=== PATIENT | female | born 1975 | race Caucasian/White ===

== ENCOUNTER 2017-08-08 22:54 | Emergency (ER) | payer OTHER ==
[2017-08-08] MEDS ORDERED: Acetaminophen/oxyCODONE 325-10 MG Tab PO STA (23:48)
--- NOTE | 2017-08-08 23:48 | EDM.PDOC ---
ED HPI GENERAL MEDICAL PROBLEM - General Chief Complaint: Upper Extremity Injury/Pain Stated Complaint: PAIN LT WRIST Time Seen by Provider: 08/08/17 23:25 Source of Information: Reports: Patient - History of Present Illness INITIAL COMMENTS - FREE TEXT/NARRATIVE: fell against left hand now complains of pain no other injury Left Wrist Pain Score (Numeric/FACES): 8 - Related Data Allergies Allergy/AdvReac Type Severity Reaction Status Date / Time No Known Allergies Allergy Verified 08/08/17 23:01 Home Meds: Home Meds Albuterol [Ventolin HFA] 2 puff INH Q4H PRN 12/23/14 [History] Modafinil [Provigil] 100 mg PO 1200 PRN 12/24/14 [History] Zolpidem [Ambien] 5 mg PO BEDTIME 12/24/14 [History] Past Medical History Neurological History: Reports: Other (See Below) Other Neuro History: epilepsy and narcolepsy - Infectious Disease History Infectious Disease History: Reports: Chicken Pox Social & Family History - Family History Family Medical History: Noncontributory - Tobacco Use Smoking Status *Q: Former Smoker Used Tobacco, but Quit: Yes Month Tobacco Last Used: 13 years Second Hand Smoke Exposure: No - Caffeine Use Caffeine Use: Reports: Soda - Alcohol Use Days Per Week of Alcohol Use: 1 Number of Drinks Per Day: 1 Total Drinks Per Week: 1 - Recreational Drug Use Recreational Drug Use: No Review of Systems - Review of Systems Review Of Systems: See Below (no other injury) ED EXAM, GENERAL - Physical Exam Exam: See Below Free Text/Narrative:: alert non toxic appearance neck supple normal mentation left wrist: diffuse swelling and tenderness over distal forearm; no deformity normal finger function left hand Course - Vital Signs Last Recorded V/S: Last Vital Signs Temp 97.5 F 08/08/17 22:58 Pulse 97 08/08/17 22:58 Resp 16 08/08/17 22:58 BP 121/82 08/08/17 22:58 Pulse Ox 97 08/08/17 22:58 - Orders/Labs/Meds Orders: Active Orders 24 hr Category Date Time Status Wrist 2V Lt [CR] Stat Exams 08/08/17 23:02 Taken Departure - Departure Time of Disposition: 23:46 Disposition: Home, Self-Care 01 Condition: Fair Clinical Impression: Sprain of left wrist - Discharge Information Referrals: Norby,Ksenia A, THREAT ANALYST [Primary Care Provider] - Additional Instructions: percocet 10/325 1 po q 4 hours prn pain recheck later this week use a wrist splint for one to two weeks percocet is for short term use as it may be habit forming, sedating and constipating. do not use with tylenol
[2017-08-09 04:35] VITALS: BP 117/79
--- NOTE | 2017-08-09 16:30 | CR ---
EXAM DATE: 08/08/17 PATIENT'S AGE: 41 Patient: LUCRECIA CONWAY Facility: [place], [place] Site . Site : 1975 Study: XRay Extremity Left wrist [id number] 11:20:46 PM Ordering Physician: Dain Montes De Oca Final Report: Indication: Pain. Technique: Left wrist two views. Comparison: None. Findings: No acute fracture or dislocation. No additional osseous abnormality. No radio- opaque foreign body evident in the soft tissues. Impression: No acute osseous abnormality. Dictated by Porfirio Mejia MD @ 08/09/2017 12:06:14 AM Dictated by: Porfirio Mejia MD @ 08/09/2017 00:06:20 (Electronic Signature) Report Signed by Proxy. [facility]
== END 2017-08-09 00:14 | disposition home or self-care (01) ==
LOC: MW.ED 22:54
DX: S63.502A Unspecified sprain of left wrist, initial encounter (principal); Z87.891 Personal history of nicotine dependence; W19.XXXA Unspecified fall, initial encounter
CPT/HCPCS: 73100; 99283; A9270; 99282

== ENCOUNTER 2021-02-16 11:23 | Emergency (ER) | payer OTHER ==
[2021-02-16] MEDS ORDERED: Sodium Chloride 0.9% 2.5 ML Syringe FLUSH PRN (11:34)
[2021-02-16] MEDS ORDERED: Ketorolac 15 MG/ML SDV IVPUSH ONE (11:34)
[2021-02-16] MEDS ORDERED: Aspirin 81 MG Tab.Chew PO ONE (11:34)
[2021-02-16] MEDS ORDERED: Sodium Chloride 0.9% 10 ML Syringe FLUSH PRN (11:34)
--- NOTE | 2021-02-16 11:38 | EDM.PDOC ---
ED HPI GENERAL MEDICAL PROBLEM - General Chief Complaint: Chest Pain Stated Complaint: CHEST PAINS Time Seen by Provider: 02/16/21 11:28 - History of Present Illness INITIAL COMMENTS - FREE TEXT/NARRATIVE: History of present illness: [] This 45-year-old young lady reports chest pain that started yesterday. It lasted 5 minutes and comes back every 2 to 3 minutes. It is pressure in the right side of her chest and it is severe. It is not associated with shortness of breath nausea but is temporally associated with diaphoresis. The patient is a 15-year smoking history but has been free of cigarettes for 15 years. The patient has a grandmother may have had blood clots and certainly had some atherosclerotic disease. There is no heart attack stroke or thromboembolic disease in the immediate family. The patient has no previous history of thromboembolic disease, no recent immobilization or long trips, no surgery or cast. Review of systems: As per history of present illness and below otherwise all systems reviewed and negative. Past medical history: As per history of present illness and as reviewed below otherwise noncontributory. Surgical history: As per history of present illness and as reviewed below otherwise noncontributory. Social history: No reported history of drug or alcohol abuse. Family history: As per history of present illness and as reviewed below otherwise noncontributory. Physical exam: Constitutional - well developed, well-nourished and in no acute distress HEENT - normocephalic, no evidence of trauma - external nose and mouth normal - no mass in neck and no JVD - mucosae moist EYES - full EOM, PERRL, no icterus - no evidence of inflammation, injection, or drainage Respiratory - no respiratory distress, equal bilateral expansion, lungs clear to auscultation and no abnormal lung sounds Cardiovascular - Regular Rhythm with S1 and S2 appreciated and no murmur, gallop or rub. GI - abdomen soft without distension or organomegaly - normal bowel sounds - no guard or rebound Musculoskeletal no gross deformity of long bones or joints - no tenderness, swelling or edema Neurologic - Alert and oriented times four - CN II-XII grossly intact - motor sensory and coordination symmetrically normal Psychiatric - appropriate mood and affect with normal thought content Hematologic - No petechiae or purpura - mucosa appropriate color and sclera not pale - normal nail bed color and refill Integument - no rash or evidence of trauma - normal turgor Diagnostics: [] Therapeutics: [] Impression: [] Plan: [] Definitive disposition and diagnosis as appropriate pending reevaluation and review of above. chest Pain Score (Numeric/FACES): 3 - Related Data Allergies Allergy/AdvReac Type Severity Reaction Status Date / Time divalproex sodium Allergy Vomiting Verified 02/16/21 11:42 [From Depakote] Home Meds: Home Meds Albuterol [Ventolin HFA] 2 puff INH Q4H PRN 12/23/14 [History] Modafinil [Provigil] 100 mg PO 1200 PRN 12/24/14 [History] Zolpidem [Ambien] 5 mg PO BEDTIME 12/24/14 [History] Hydrocodone/Acetaminophen [Hydrocodon-Acetaminoph 7.5-325] 1 each PO Q4H PRN #10 tablet 02/16/21 [Rx] Past Medical History Neurological History: Reports: Other (See Below) Other Neuro History: epilepsy and narcolepsy - Infectious Disease History Infectious Disease History: Reports: Chicken Pox Social & Family History - Family History Family Medical History: No Pertinent Family History - Caffeine Use Caffeine Use: Reports: Soda ED ROS GENERAL - Review of Systems Review Of Systems: Comprehensive ROS is negative, except as noted in HPI. ED EXAM, GENERAL - Physical Exam Exam: See Below Free Text/Narrative:: My physical exam is in the HPI Course - Vital Signs Text/Narrative:: 13:31 Patient feels better and BP trending down. Lab has just drawn repeat troponin. I calculate this patient's heart score to be 0. She is a low risk. 1416-second troponin negative. Patient in no acute distress. Blood pressure still elevated and she will follow with PMD. Last Recorded V/S: Last Vital Signs Temp 36.2 C 02/16/21 11:23 Pulse 85 02/16/21 12:45 Resp 17 02/16/21 12:45 BP 159/103 H 02/16/21 12:45 Pulse Ox 98 02/16/21 12:45 - Orders/Labs/Meds Orders: Active Orders 24 hr Category Date Time Status Cardiac Monitoring [RC] . DIRECTED Care 02/16/21 11:34 Active EKG Documentation Completion [RC] AM Care 02/16/21 11:34 Active Sodium Chloride 0.9% [Saline Flush] Med 02/16/21 11:34 Active 10 ml FLUSH ASDIRECTED PRN Sodium Chloride 0.9% [Saline Flush] Med 02/16/21 11:34 Active 2.5 ml FLUSH ASDIRECTED PRN Saline Lock Insert [OM.PC] Stat Oth 02/16/21 11:34 Ordered Medication Orders Sodium Chloride (Sodium Chloride 0.9% 10 Ml Syringe) 10 ml FLUSH ASDIRECTED PRN PRN Reason: Keep Vein Open Last Admin: 02/16/21 11:49 Dose: 10 ml Documented by: LES Sodium Chloride (Sodium Chloride 0.9% 2.5 Ml Syringe) 2.5 ml FLUSH ASDIRECTED PRN PRN Reason: Keep Vein Open Last Admin: 02/16/21 11:49 Dose: 2.5 ml Documented by: LES Labs: Laboratory Tests 02/16/21 02/16/21 02/16/21 Range/Units 11:31 11:31 11:31 WBC 8.81 (4.0-11.0) K/uL RBC 3.90 L (4.30-5.90) M/uL Hgb 13.3 (12.0-16.0) g/dL Hct 39.0 (36.0-46.0) % MCV 100.0 H (80.0-98.0) fL MCH 34.1 H (27.0-32.0) pg MCHC 34.1 (31.0-37.0) g/dL RDW Std Deviation 47.5 (28.0-62.0) fl RDW Coeff of Kinga 13 (11.0-15.0) % Plt Count 383 (150-400) K/uL MPV 9.40 (7.40-12.00) fL Neut % (Auto) 72.8 (48.0-80.0) % Lymph % (Auto) 20.0 (16.0-40.0) % Sullivan % (Auto) 6.0 (0.0-15.0) % Eos % (Auto) 0.6 (0.0-7.0) % Baso % (Auto) 0.6 (0.0-1.5) % Neut # (Auto) 6.4 H (1.4-5.7) K/uL Lymph # (Auto) 1.8 (0.6-2.4) K/uL Sullivan # (Auto) 0.5 (0.0-0.8) K/uL Eos # (Auto) 0.1 (0.0-0.7) K/uL Baso # (Auto) 0.1 (0.0-0.1) K/uL Nucleated RBC % 0.0 /100WBC Nucleated RBCs # 0 K/uL D-Dimer, Quantitative 0.50 (0.0-0.50) mg/L FEU Sodium 138 (136-145) mmol/L Potassium 3.2 L (3.5-5.1) mmol/L Chloride 100 (98-107) mmol/L Carbon Dioxide 25.0 (21.0-32.0) mmol/L BUN 8 (7.0-18.0) mg/dL Creatinine 1.1 H (0.6-1.0) mg/dL Est Cr Clr Drug Dosing 65.84 mL/min Estimated GFR (MDRD) 54.0 ml/min Glucose 108 H (74-106) mg/dL Calcium 8.6 (8.5-10.1) mg/dL Total Bilirubin 0.4 (0.2-1.0) mg/dL AST 12 L (15-37) IU/L ALT 19 (14-63) IU/L Alkaline Phosphatase 89 (46-116) U/L Troponin I < 0.050 (0.000-0.056) ng/mL Total Protein 7.8 (6.4-8.2) g/dL Albumin 3.4 (3.4-5.0) g/dL Globulin 4.4 H (2.6-4.0) g/dL Albumin/Globulin Ratio 0.8 L (0.9-1.6) 02/16/21 Range/Units 13:30 WBC (4.0-11.0) K/uL RBC (4.30-5.90) M/uL Hgb (12.0-16.0) g/dL Hct (36.0-46.0) % MCV (80.0-98.0) fL MCH (27.0-32.0) pg MCHC (31.0-37.0) g/dL RDW Std Deviation (28.0-62.0) fl RDW Coeff of Kinga (11.0-15.0) % Plt Count (150-400) K/uL MPV (7.40-12.00) fL Neut % (Auto) (48.0-80.0) % Lymph % (Auto) (16.0-40.0) % Sullivan % (Auto) (0.0-15.0) % Eos % (Auto) (0.0-7.0) % Baso % (Auto) (0.0-1.5) % Neut # (Auto) (1.4-5.7) K/uL Lymph # (Auto) (0.6-2.4) K/uL Sullivan # (Auto) (0.0-0.8) K/uL Eos # (Auto) (0.0-0.7) K/uL Baso # (Auto) (0.0-0.1) K/uL Nucleated RBC % /100WBC Nucleated RBCs # K/uL D-Dimer, Quantitative (0.0-0.50) mg/L FEU Sodium (136-145) mmol/L Potassium (3.5-5.1) mmol/L Chloride (98-107) mmol/L Carbon Dioxide (21.0-32.0) mmol/L BUN (7.0-18.0) mg/dL Creatinine (0.6-1.0) mg/dL Est Cr Clr Drug Dosing mL/min Estimated GFR (MDRD) ml/min Glucose (74-106) mg/dL Calcium (8.5-10.1) mg/dL Total Bilirubin (0.2-1.0) mg/dL AST (15-37) IU/L ALT (14-63) IU/L Alkaline Phosphatase (46-116) U/L Troponin I < 0.050 (0.000-0.056) ng/mL Total Protein (6.4-8.2) g/dL Albumin (3.4-5.0) g/dL Globulin (2.6-4.0) g/dL Albumin/Globulin Ratio (0.9-1.6) Meds: Medications Generic Name Dose Route Start Last Admin Trade Name Freq PRN Reason Stop Dose Admin Sodium Chloride 10 ml 02/16/21 11:34 02/16/21 11:49 Sodium Chloride 0.9% 10 Ml Syringe FLUSH 10 ml ASDIRECTED PRN Administration Keep Vein Open Sodium Chloride 2.5 ml 02/16/21 11:34 02/16/21 11:49 Sodium Chloride 0.9% 2.5 Ml Syringe FLUSH 2.5 ml ASDIRECTED PRN Administration Keep Vein Open Discontinued Medications Generic Name Dose Route Start Last Admin Trade Name Catia PRN Reason Stop Dose Admin Aspirin 324 mg 02/16/21 11:34 02/16/21 11:46 Aspirin 81 Mg Tab.Chew PO 02/16/21 11:35 324 mg ONETIME ONE Administration Fentanyl 50 mcg 02/16/21 12:45 02/16/21 12:57 Fentanyl 50 Mcg/Ml Sdv IVPUSH 02/16/21 12:46 50 mcg ONETIME ONE Administration Ketorolac Tromethamine 15 mg 02/16/21 11:34 02/16/21 11:47 Ketorolac 15 Mg/Ml Sdv IVPUSH 02/16/21 11:35 15 mg ONETIME ONE Administration Departure - Departure Time of Disposition: 14:16 Disposition: Home, Self-Care 01 Condition: Good Clinical Impression: Chest pain - Discharge Information Instructions: Nonspecific Chest Pain, Adult, [id number] Referrals: PCP,None [Primary Care Provider] - Forms: ED Department Discharge Additional Instructions: Keep an eye on your blood pressure. Have your physician follow-up. If esophageal reflux is part of this problem you can take H2 blockers like Zantac and Pepcid along with PPI medicines like omeprazole pantoprazole etc. Both are [id number]. Remember to avoid heavy meals before you recline and elevate the head of your bed if possible. [facility] - Primary Care [address] [place] [address] [id number] [address] [address] The following information is given to patients seen in the emergency department who are being discharged to home. This information is to outline your options for follow-up care. We provide all patients seen in our emergency department with a follow-up referral. The need for follow-up, as well as the timing and circumstances, are variable depending upon the specifics of your emergency department visit. If you don't have a primary care physician on staff, we will provide you with a referral. We always advise you to contact your personal physician following an emergency department visit to inform them of the circumstance of the visit and for follow-up with them and/or the need for any referrals to a consulting specialist. The emergency department will also refer you to a specialist when appropriate. This referral assures that you have the opportunity for follow-up care with a specialist. All of these measure are taken in an effort to provide you with optimal care, which includes your follow-up. Under all circumstances we always encourage you to contact your private physician who remains a resource for coordinating your care. When calling for follow-up care, please make the office aware that this follow-up is from your recent emergency room visit. If for any reason you are refused follow-up, please contact the [facility] Emergency Department at and asked to speak to the emergency department charge nurse. Sepsis Event Note (ED) - Focused Exam Vital Signs: Vital Signs Temp Pulse Resp BP Pulse Ox 02/16/21 12:45 85 17 159/103 H 98 02/16/21 11:23 36.2 C 101 H 18 152/110 H 98 - My Orders Last 24 Hours: My Active Orders 02/16/21 11:34 Cardiac Monitoring [RC] . DIRECTED EKG Documentation Completion [RC] AM Sodium Chloride 0.9% [Saline Flush] 10 ml FLUSH ASDIRECTED PRN Sodium Chloride 0.9% [Saline Flush] 2.5 ml FLUSH ASDIRECTED PRN Saline Lock Insert [OM.PC] Stat - Assessment/Plan Last 24 Hours: My Active Orders 02/16/21 11:34 Cardiac Monitoring [RC] . DIRECTED EKG Documentation Completion [RC] AM Sodium Chloride 0.9% [Saline Flush] 10 ml FLUSH ASDIRECTED PRN Sodium Chloride 0.9% [Saline Flush] 2.5 ml FLUSH ASDIRECTED PRN Saline Lock Insert [OM.PC] Stat
[2021-02-16 12:03] LABS: BLOOD UREA NITROGEN,BUN 8 mg/dL (7.0-18.0); CHLORIDE,CL 100 mmol/L (98-107); GLUCOSE RANDOM 108 mg/dL (74-106); POTASSIUM,K 3.2 mmol/L (3.5-5.1); SODIUM,NA 138 mmol/L (136-145)
--- NOTE | 2021-02-16 12:34 | CR ---
INDICATION: Chest pain TECHNIQUE: Chest 1 view. COMPARISON: Chest x-ray 12/23/2014 FINDINGS: The heart is normal in size. The pulmonary vasculature is within limits. The lungs clear. Bones are unremarkable. IMPRESSION: No acute process. Dictated by Sandrine Herrera MD @ 02/16/2021 12:32:[address] Sandrine Herrera @ Feb 16 2021 12:32PM
[2021-02-16] MEDS ORDERED: fentaNYL 50 MCG/ML SDV IVPUSH ONE (12:45)
[2021-02-16 14:26] VITALS: BP 159/97; PULSE 103
== END 2021-02-16 14:27 | disposition home or self-care (01) ==
LOC: MW.ED 11:23
DX: R07.89 Other chest pain (principal); Z88.5 Allergy status to narcotic agent
CPT/HCPCS: 36415; 71045; 80053; 84484; 85025; 85379; 93005; 96374; 96375; 99285; A9270; J1885; J3010; 93010; 99283